=== PATIENT | female | born 1950 | race Caucasian/White ===

== ENCOUNTER 2017-07-16 11:32 | Inpatient (IN) | payer MEDICARE, MEDICAID ==
[2017-07-16 11:40] VITALS: BMI 32.8
[2017-07-16] MEDS ORDERED: Oxycodone/Acetaminophen 5/325 mg Tab PO STA (12:19)
--- NOTE | 2017-07-16 12:24 | ED PDOC ---
Arrival/HPI - General Chief Complaint: Trauma Time Seen by Provider: 07/16/17 12:08 Historian: Patient, Other (pt's son) EM Caveat: Language Barrier - History of Present Illness Narrative History of Present Illness (Text): 07/16/17 12:21 pt accidentally fell off the chair today, just prior to ED arrival; pt states she was trying to sit down and the chair slipped from underneath her, pt fell and struck the back of her head on the wall and her lower back on the ground causing her severe pain; pt states + mild headache, + lower back pain, moving around causes severe pain; pt states no LOC pre/post fall; no fever/chills/ sweats, no cp/sob/palpitations, no abd pain, no n/v, no numbness/tingling, no urinary/bowel changes, no vaginal/rectal numbness/tingling, no incontience, no gross bleeding, no other complaints; pt is here for further eval. 07/16/17 12:32 Pt is right hand dominate pt lives with her son Time/Duration: Prior to Arrival Symptom Onset: Sudden Symptom Course: Other (constant) Quality: Aching, Tightness Severity Level: 7 Activities at Onset: Rest Context: Sitting Past Medical History - Provider Review Nursing Documentation Reviewed: Yes - Travel History Have you recently traveled outside [place] w/in the past 3 mons?: No - Past History Past History: Non-Contributing (+ DM, HTN, elevated chol) - Infectious Disease Hx of Infectious Diseases: None - Tetanus Immunization Tetanus Immunization: Unknown - Cardiac Hx Hyperlipemia: Yes Hx Hypertension: Yes - Neurological Hx Neurological Disorder: No - Endocrine/Metabolic Hx Diabetes Mellitus Type 2: Yes - Hematological/Oncological Hx Blood Disorders: No - Gastrointestinal Hx Gastrointestinal Disorders: No - Genitourinary/Gynecological Hx Genitourinary Disorders: No - Psychiatric Hx Depression: No Hx Emotional Abuse: No Hx Physical Abuse: No Hx Substance Use: No - Surgical History Hx Cholecystectomy: Yes - Anesthesia Hx Anesthesia: Yes Hx Anesthesia Reactions: No Hx Malignant Hyperthermia: No - Suicidal Assessment Suicidal Thoughts: No Feels Threatened In Home Enviroment: No Family/Social History - Physician Review Nursing Documentation Reviewed: Yes Family/Social History: No Known Family HX Narrative Family History (Free Text): 07/16/17 12:27 pt lives with son Smoking Status: Never Smoked Hx Alcohol Use: No Hx Substance Use: No Allergies/Home Meds Allergies/Adverse Reactions: Allergies No Known Allergies Allergy (Verified 04/18/16 17:40) Home Medications: Home Meds Medication Instructions Recorded Confirmed Hydrochlorothiazide/Losartan 1 tab PO DAILY 07/17/13 04/18/16 [Losartan 100MG/HCTZ 25MG] Omeprazole 20 mg PO BID 07/17/13 04/18/16 Pravastatin Sodium 20 mg PO HS 07/17/13 04/18/16 Glimepiride [Amaryl] 07/16/17 amLODIPine [Norvasc] 5 mg PO 07/16/17 metFORMIN [glucOPHAGE] 500 mg PO 07/16/17 Review of Systems - Review of Systems Constitutional: Normal Eyes: Normal ENT: Normal Respiratory: Normal Cardiovascular: Normal Gastrointestinal: Normal Musculoskeletal: Back Pain Skin: Normal Neurological: Headache Endocrine: Normal Hemo/Lymphatic: Normal Psychiatric: Normal Physical Exam - Physical Exam Narrative Physical Exam (Text): 07/16/17 12:28 well appearing patient; resting in bed, alert/awake, GCS = 15, oriented x 3 Vital Signs Reviewed: Yes (elevated DBP) Vital Signs Temp Pulse Resp BP Pulse Ox 07/16/17 15:22 97.9 F 72 18 116/64 96 07/16/17 13:22 79 18 135/89 96 07/16/17 11:44 97.9 F 89 18 137/91 H 95 Temperature: Afebrile Pulse: Regular Respiratory Rate: Normal Appearance: Positive for: Well-Appearing, Uncomfortable (in some distress due to pain, NAD, cooperative) Pain Distress: Mild Mental Status: Positive for: Alert and Oriented X 3 - Systems Exam Head: Present: Normocephalic, Other (+ posterior scalp mild swelling, + tenderness over the swelling site; no flucutance noted) Pupils: Present: PERRL Extroacular Muscles: Present: EOMI Conjunctiva: Present: Normal Ears: Present: Normal Pharnyx: Present: Normal Nose (Internal): Present: Normal Inspection Neck: Present: Normal Range of Motion Respiratory/Chest: Present: Clear to Auscultation, Good Air Exchange Cardiovascular: Present: Regular Rate and Rhythm Abdomen: Present: Normal Bowel Sounds, Other (obese female, no focal tenderness , no eckert's sign, no mcburney's point tenderness, no masses/rebound/guarding/ rigidity). No: Tenderness, Distention, Peritoneal Signs Back: Present: Other (lower lumbar tenderness noted, upper > lower, no step off , no crepitus noted, no ecchymosis noted) Upper Extremity: Present: Normal Inspection, Normal ROM, Capillary Refill < 2s Lower Extremity: Present: Normal Inspection, Capillary Refill < 2 s, Other ( decr ROM to b/l lower ext due to low back pain, neurovasc intact b/l, strength 5 /5 grossly intact in all limbs) Neurological: Present: GCS=15, CN II-XII Intact, Speech Normal Skin: Present: Warm, Normal Color Psychiatric: Present: Alert, Oriented x 3, Normal Insight, Normal Concentration Medical Decision Making ED Course and Treatment: 07/16/17 12:31 pt + accidental fall from chair, NO LOC, + headache, + low back pain, + difficulty with ambulation A/P: fall, headache and back pain - xray - ct - observe - supportive care 07/16/2017 12:[address] HISTORY: fell off [place], posterior scal swelling, no loc COMPARISON: None available. TECHNIQUE: Axial computed tomography images were obtained through the head/ brain without intravenous contrast. Radiation dose: Total exam ZQQ=541 mGy-cm This CT exam was performed using one or more of the following dose reduction techniques: Automated exposure control, adjustment of the mA and/or kV according to patient size, and/or use of iterative reconstruction technique. FINDINGS: HEMORRHAGE: No intracranial hemorrhage. BRAIN: No mass effect or edema. No aatrophy or chrnoic microvasculat ischemic changes. VENTRICLES: Unremarkable. No hydrocephalus. CALVARIUM: Unremarkable. PARANASAL SINUSES: Unremarkable as visualized. No inflammatory changes. MASTOID AIR CELLS: Unmarkable as visualized. No inflammatory changes. OTHER FINDINGS: None. IMPRESSION: No acut findings. Dictator: Garrick Rodrigues MD 07/16/2017 13:26 Lumbar Spinal X-Ray HISTORY: Fall, lower back pain. COMPARISON: No prior. FINDINGS: BONES: There is severe dextroscoliosis in the lumbar spine. There is normal alignment of the lumbar vertebral bodies. There is diffuse bone demineralization. There is anterior cotrical step-off with mild loss of vertebral height at L1. DISC SPACES: There is mild multilevel degenerative disc disease with anterior osteophytes, mild reudced disc heights and multilevel facet arthropathy, worse at L4-5. OTHER FINDINGS: There are atherosclerotic calcifications in the abdominal aorta. IMPRESSION: Suspect acute compression fracture in the L1 vertebral body. No retropulsion. Dictator: Karen Coulter MD 07/16/17 14:05 pt continue to have back pain will attempt to ambulate 07/16/17 14:37 pt failed ambulation, requiring 1 individual constantly next to her to keep her standing pt with persistent back pain paged documentation supervisor hospitalists, made aware, agrees with admission pt/family are made aware of pt's medical results agrees with admission/observation Reassessment Condition: Improving,but remains with symptoms - Lab Interpretations I have reviewed the lab results: Yes Interpretation: No clinic. lab abnormalty - RAD Interpretation Narrative RAD Interpretations (Text): 07/16/17 13:58 FINDINGS: BONES: There is severe dextroscoliosis in the lumbar spine. There is normal alignment of the lumbar vertebral bodies. There is diffuse bone demineralization. There is anterior cortical step-off with mild loss of vertebral height at L1. DISC SPACES: There is mild multilevel degenerative disc disease with anterior osteophytes, mild reduced disc heights and multilevel facet arthropathy, worse at L4-5. OTHER FINDINGS: There are atherosclerotic calcifications in the abdominal aorta IMPRESSION: Suspect acute compression fracture in the L1 vertebral body. No retropulsion. Severe dextroscoliosis in the lumbar spine and mild multilevel degenerative disc disease, worse at L4-5. 07/16/17 13:59 FINDINGS: HEMORRHAGE: No intracranial hemorrhage. BRAIN: No mass effect or edema. No atrophy or chronic microvascular ischemic changes. VENTRICLES: Unremarkable. No hydrocephalus. CALVARIUM: Unremarkable. PARANASAL SINUSES: Unremarkable as visualized. No significant inflammatory changes. MASTOID AIR CELLS: Unremarkable as visualized. No inflammatory changes. OTHER FINDINGS: None. IMPRESSION: No acute findings Radiology Orders: 07/16/17 12:16 HEAD W/O CONTRAST [CT] Stat 07/16/17 12:19 LS SPINE AP/LAT [RAD] Stat Communications Electrician Supervisor: Radiologist - Medication Orders Current Medication Orders: Docusate Sodium (Colace) 100 mg PO DAILY HOLDEN Heparin Sodium (Porcine) (Heparin) 5,000 units SC Q8 HOLDEN PRN Reason: Protocol Naproxen (Anaprox Ds) 550 mg PO BID HOLDEN Non-Formulary Medication (Hydrochlorothiazide/Losartan [Losartan 100mg/Hctz 25mg ]) 1 tab PO DAILY HOLDEN Non-Formulary Medication (Pravastatin Sodium [Pravastatin Sodium]) 20 mg PO HS HOLDEN Oxycodone HCl (Oxycodone Immediate Release Tab) 5 mg PO Q8 HOLDEN Discontinued Medications Diazepam (Valium) 2 mg PO ONCE ONE PRN Reason: Protocol Stop: 07/16/17 12:21 Last Admin: 07/16/17 13:34 Dose: 2 mg Hydromorphone HCl (Dilaudid) 0.5 mg IVP STAT STA Stop: 07/16/17 14:31 Last Admin: 07/16/17 15:01 Dose: 0.5 mg MAR Pain Assessment Document 07/16/17 15:01 OCS (Rec: 07/16/17 15:01 [id number]) Pain Reassessment Is this a pain reassessment? Yes Sleep Is patient sleeping during reassessment? No Presence of Pain Presence of Pain Yes Pain Scale Used Pain Scale Used Numeric Location Upper or Lower Lower Pain Location Body Site Back Description Description Constant Intensity of Pain at present 10 Pain Behavior Guarding Aggravating Factors ADL's IVP Administration Document 07/16/17 15:01 OCS (Rec: 07/16/17 15:01 [id number]) Charges for Administration # of IVP Administrations 1 Ibuprofen (Motrin Tab) 400 mg PO STAT STA Stop: 07/16/17 12:21 Last Admin: 07/16/17 13:34 Dose: 400 mg MAR Pain/Vitals Document 07/16/17 13:34 OCS (Rec: 07/16/17 13:35 [id number]) Pain Reassessment Is This A Pain ReAssessment? Yes Sleep Is patient sleeping during reassessment? No Presence of Pain Presence of Pain Yes Location Pain Location Body Coding Machine Operator Oxycodone/Acetaminophen (Percocet 5/325 Mg Tab) 1 tab PO STAT STA Stop: 07/16/17 12:20 Last Admin: 07/16/17 13:35 Dose: 1 tab MAR Pain Assessment Document 07/16/17 13:35 OCS (Rec: 07/16/17 13:35 [id number]) Pain Reassessment Is this a pain reassessment? Yes Sleep Is patient sleeping during reassessment? No Presence of Pain Presence of Pain Yes Location Pain Location Body Coding Machine Operator Disposition/Present on Arrival - Present on Arrival Any Indicators Present on Arrival: Yes History of DVT/PE: No History of Uncontrolled Diabetes: No Urinary Catheter: No History of Decub. Ulcer: No History Surgical Site Infection Following: None - Disposition Have Diagnosis and Disposition been Completed?: Yes Diagnosis: Fall, Closed compression fracture of L1 lumbar vertebral body, Ambulatory dysfunction Disposition: HOSPITALIZED Disposition Time: 14:15 Patient Plan: Admission, Observation Patient Problems: Current Active Problems Problem Status Onset Fall Acute Closed compression fracture of L1 lumbar vertebral body Acute Ambulatory dysfunction Acute Condition: STABLE
--- NOTE | 2017-07-16 12:56 | CT ---
PROCEDURE: CT HEAD WITHOUT CONTRAST. HISTORY: fell off chair, posterior scalp swelling, no loc COMPARISON: None available. TECHNIQUE: Axial computed tomography images were obtained through the head/brain without intravenous contrast. Radiation dose: Total exam DLP = 681 mGy-cm. This CT exam was performed using one or more of the following dose reduction techniques: Automated exposure control, adjustment of the mA and/or kV according to patient size, and/or use of iterative reconstruction technique. FINDINGS: HEMORRHAGE: No intracranial hemorrhage. BRAIN: No mass effect or edema. No atrophy or chronic microvascular ischemic changes. VENTRICLES: Unremarkable. No hydrocephalus. CALVARIUM: Unremarkable. PARANASAL SINUSES: Unremarkable as visualized. No significant inflammatory changes. MASTOID AIR CELLS: Unremarkable as visualized. No inflammatory changes. OTHER FINDINGS: None. IMPRESSION: No acute findings
--- NOTE | 2017-07-16 13:28 | RAD ---
PROCEDURE: Radiographs of the Lumbar Spine. HISTORY: Fall, lower back pain COMPARISON: No prior. FINDINGS: BONES: There is severe dextroscoliosis in the lumbar spine. There is normal alignment of the lumbar vertebral bodies. There is diffuse bone demineralization. There is anterior cortical step-off with mild loss of vertebral height at L1. DISC SPACES: There is mild multilevel degenerative disc disease with anterior osteophytes, mild reduced disc heights and multilevel facet arthropathy, worse at L4-5. OTHER FINDINGS: There are atherosclerotic calcifications in the abdominal aorta IMPRESSION: Suspect acute compression fracture in the L1 vertebral body. No retropulsion. Severe dextroscoliosis in the lumbar spine and mild multilevel degenerative disc disease, worse at L4-5.
[2017-07-16] MEDS ORDERED: HYDROmorphone 0.5 mg/0.5 ml ISec IVP STA (14:30)
[2017-07-16 15:08] LABS: BASO # 0.04 K/mm3 (0.0-2.0); BASO % 0.5 % (0.0-3.0); EOS # 0.1 (0.0-0.7); EOS % 1.6 % (1.5-5.0); GRAN # 6.02 (1.4-6.5); GRAN % 72.1 % (50.0-68.0); HEMATOCRIT 39.8 % (36.0-48.0); LYMPH # 1.6 (1.2-3.4); LYMPH % 19.1 % (22.0-35.0); MEAN CELL VOLUME 89.2 fl (80.0-105.0); MEAN CORPUSCULAR HEMOGLOBIN 30.5 pg (25.0-35.0); MEAN CORPUSCULAR HGB CONC 34.2 g/dl (31.0-37.0); MEAN PLATELET VOLUME 10.2 fl (7.0-11.0); MONO # 0.6 (0.1-0.6); MONO % 6.7 % (1.0-6.0); RED CELL DISTRIBUTION WIDTH 12.6 % (11.5-14.5); WHITE BLOOD COUNT 8.3 10^3/ul (4.5-11.0)
[2017-07-16 15:16] LABS: BLOOD UREA NITROGEN 25 mg/dL (7-21); CALCIUM 9.6 mg/dL (8.4-10.5); CARBON DIOXIDE 27 mmol/L (21-33); CHLORIDE 102 mmol/L (98-107); GFR AFRICAN-AMERICAN > 60; GLUCOSE,RANDOM 127 mg/dL (70-110); POTASSIUM 3.9 mmol/L (3.6-5.0); SODIUM 138 mmol/L (132-148)
[2017-07-16] MEDS ORDERED: [UNRECOGNIZED DRUG - OTHER] PO SCH (15:30)
[2017-07-16] MEDS ORDERED: LOSARTAN PO SCH (15:30)
[2017-07-16] MEDS ORDERED: HYDROCHLOROTHIAZIDE PO SCH (15:30)
--- NOTE | 2017-07-16 15:32 | CP.PCM.HP ---
<Lamont Huitron - Last Filed: 07/16/17 15:38> History of Present Illness - History of Present Illness History of Present Illness: This is a 67 year with a past medical history of hypertension, hyperlipidemia, and diabetes mellitus who comes in after falling on the floor. The patient attempted to sit in a chair and when she set down the chair slipped from under her and she feel backwards hitting her head. She denies any loss of consciousness as a result. Afterwards she was brought into the emergency department as a result. The patient denies any lightheadedness, dizziness, syncopal episodes, in association with the slip. She also denies any abdominal pain, diarrhea, vision changes, sicks contacts, or any other complaints. PMD: Dr. Verma Past medical history: HTN, HLD, and D.M. Medications: See MAR Past surgical history: Denies Allergies: NKDA Family history: Denies any Social history: Denies alcohol or tobacco use. Denies illicit drug use. Present on Admission - Present on Admission Any Indicators Present on Admission: No Review of Systems - Constitutional Constitutional: As Per HPI - EENT Eyes: As Per HPI Ears: As Per HPI Nose/Mouth/Throat: As Per HPI - Cardiovascular Cardiovascular: As Per HPI - Respiratory Respiratory: As Per HPI - Gastrointestinal Gastrointestinal: As Per HPI - Genitourinary Genitourinary: As Per HPI - Musculoskeletal Musculoskeletal: As Per HPI - Integumentary Integumentary: As Per HPI - Neurological Neurological: As Per HPI - Psychiatric Psychiatric: As Per HPI - Endocrine Endocrine: As Per HPI - Hematologic/Lymphatic Hematologic: As Per HPI Past Patient History - Infectious Disease Hx of Infectious Diseases: None - Tetanus Immunizations Tetanus Immunization: Unknown - Past Social History Smoking Status: Never Smoked - CARDIAC Hx Hypertension: Yes - NEUROLOGICAL Hx Neurological Disorder: No - ENDOCRINE/METABOLIC Hx Diabetes Mellitus Type 2: Yes - HEMATOLOGICAL/ONCOLOGICAL Hx Blood Disorders: No - GASTROINTESTINAL Hx Gastrointestinal Disorders: No - GENITOURINARY/GYNECOLOGICAL Hx Genitourinary Disorders: No - PSYCHIATRIC Hx Depression: No Hx Emotional Abuse: No Hx Physical Abuse: No Hx Substance Use: No - SURGICAL HISTORY Hx Cholecystectomy: Yes - ANESTHESIA Hx Anesthesia: Yes Hx Anesthesia Reactions: No Hx Malignant Hyperthermia: No Meds Allergies/Adverse Reactions: Allergies Allergy/AdvReac Type Severity Reaction Status Date / Time No Known Allergies Allergy Verified 07/16/17 16:28 Physical Exam - Head Exam Head Exam: ATRAUMATIC, NORMAL INSPECTION, NORMOCEPHALIC - Eye Exam Eye Exam: EOMI, Normal appearance, PERRL Pupil Exam: NORMAL ACCOMODATION, PERRL. absent: Irregular, Unequal - ENT Exam ENT Exam: Mucous Membranes Moist, Normal Exam, Normal Oropharynx - Neck Exam Neck exam: Positive for: Normal Inspection. Negative for: Lymphadenopathy, Thyromegaly - Respiratory Exam Respiratory Exam: Clear to Auscultation Bilateral, NORMAL BREATHING PATTERN. absent: Chest Wall Tenderness, Prolonged Expiratory Phase, Respiratory Distress - Cardiovascular Exam Cardiovascular Exam: REGULAR RHYTHM, +S1, +S2 - GI/Abdominal Exam GI & Abdominal Exam: Normal Bowel Sounds, Soft. absent: Organomegaly, Tenderness - Extremities Exam Extremities exam: Positive for: full ROM, normal inspection. Negative for: pedal edema, tenderness Additional comments: Pain in the lower back when flexion at the hip bilaterally. - Back Exam Back exam: NORMAL INSPECTION. absent: CVA tenderness (L), CVA tenderness (R), paraspinal tenderness - Neurological Exam Neurological exam: Alert, CN II-XII Intact, Oriented x3 - Psychiatric Exam Psychiatric exam: Normal Affect, Normal Mood - Skin Skin Exam: Dry, Intact, Normal Color, Warm Results - Vital Signs Recent Vital Signs: Last Vital Signs Temp 97.9 F 07/16/17 15:22 Pulse 72 07/16/17 15:22 Resp 18 07/16/17 15:22 BP 116/64 07/16/17 15:22 Pulse Ox 96 07/16/17 15:22 - Labs Result Diagrams: 07/16/17 14:55 07/16/17 14:55 Labs: Laboratory Results - last 24 hr 07/16/17 07/16/17 14:55 14:55 WBC 8.3 RBC 4.46 Hgb 13.6 Hct 39.8 MCV 89.2 MCH 30.5 MCHC 34.2 RDW 12.6 Plt Count 301 MPV 10.2 Gran % 72.1 H Lymph % (Auto) 19.1 L Blanco % (Auto) 6.7 H Eos % (Auto) 1.6 Baso % (Auto) 0.5 Gran # 6.02 Lymph # 1.6 Blanco # 0.6 Eos # 0.1 Baso # 0.04 Sodium 138 Potassium 3.9 Chloride 102 Carbon Dioxide 27 Anion Gap 13 BUN 25 H Creatinine 0.9 Est GFR ( Amer) > 60 Est GFR (Non-Af Amer) > 60 Random Glucose 127 H Calcium 9.6 Assessment & Plan - Assessment and Plan (Free Text) Assessment: This is a 67 year old female with a past medical history of HTN, HLD, and D.M. who is being admitted for an Acute L1 compression fracture 2/2 to mechanical fall. Plan: 1. Acute compression fracture of L1 (2/2 to Mechanical fall) -Lumbar xray showed compression fracture at L1, Dextroscoliosis and Degenerative Disc disease at L4-L5 -Head CT negative for any acute process. -Gal Jackson consulted. Will f/u with rec's. -Pain management: Naproxen Q12 and Oxycodone 5mg Q8 -Colace 2.Hypertension -restart home meds. -Continue to monitor. 3. D.M. -Home meds held. -ISS -Accuchecks ACHS. -Diabetic diet 4.HLD -restart home meds. DVT ppx -Heparin <Matt Llanos - Last Filed: 07/16/17 17:40> Results - Vital Signs Recent Vital Signs: Last Vital Signs Temp 97.9 F 07/16/17 15:22 Pulse 69 07/16/17 17:28 Resp 18 07/16/17 17:28 BP 114/63 07/16/17 17:28 Pulse Ox 96 07/16/17 17:28 - Labs Result Diagrams: 07/16/17 14:55 07/16/17 14:55 Labs: Laboratory Results - last 24 hr 07/16/17 07/16/17 14:55 14:55 WBC 8.3 RBC 4.46 Hgb 13.6 Hct 39.8 MCV 89.2 MCH 30.5 MCHC 34.2 RDW 12.6 Plt Count 301 MPV 10.2 Gran % 72.1 H Lymph % (Auto) 19.1 L Blanco % (Auto) 6.7 H Eos % (Auto) 1.6 Baso % (Auto) 0.5 Gran # 6.02 Lymph # 1.6 Blanco # 0.6 Eos # 0.1 Baso # 0.04 Sodium 138 Potassium 3.9 Chloride 102 Carbon Dioxide 27 Anion Gap 13 BUN 25 H Creatinine 0.9 Est GFR ( Amer) > 60 Est GFR (Non-Af Amer) > 60 Random Glucose 127 H Calcium 9.6 Attending/Attestation - Attestation I have personally seen and examined this patient.: Yes I have fully participated in the care of the patient.: Yes I have reviewed all pertinent clinical information: Yes Notes (Text): 67 year with a past medical history of hypertension, hyperlipidemia, and diabetes mellitus who comes in after falling on the floor. now with acute L1 fracture compression admitted for pain control possible eval for kyphoplasty
[2017-07-16] MEDS ORDERED: Pneumococcal 23-Valent Vaccine IM ONE (17:58)
[2017-07-16] MEDS ORDERED: Influenza Vaccine 60 mcg/0.5 mL SYR (4YR UP) IM ONE (17:58)
[2017-07-16] MEDS ORDERED: Naproxen 550 mg Tab PO SCH (18:00)
[2017-07-16] MEDS ORDERED: Alum-Mag Hydrox-Simethicone Susp (30 mL) PO ONE (20:24)
[2017-07-16] MEDS ORDERED: oxyCODONE 5 mg Immediate Release Tab PO SCH (22:00)
[2017-07-16] MEDS: Insulin Lispro (humaLOG) LOW Coverage SC SCH (22:10)
--- NOTE | 2017-07-17 01:44 | PN ---
DATE: 07/16/2017 TIME: 08:26 p.m. SUBJECTIVE: This is a 67-year-old female who fell today while trying to sit in a chair. She has had severe lumbar pain since that time. This is distinctly different from her baseline. She is fairly functional. She has a past medical history of hypertension, dyslipidemia, and diabetes. LABORATORY DATA: X-rays revealed a mild L1 compression fracture, which is thought to be acute. I have ordered an MRI of the lumbar spine to evaluate the L1 vertebral body for edema and the posterior elements. ASSESSMENT AND PLAN: I had discussion with the patient's family. She does not speak Finnish. They were interested in considering conservative management. I told them that is obviously an option depending on the severity of her pain and her mobility. We also discussed the kyphoplasty as an option. I have ordered the lumbar MRI and we will reassess her pain and how the family feels about L1 kyphoplasty after the weekend. Gal Jackson MD MTDD
[2017-07-17] MEDS: Insulin Lispro (humaLOG) LOW Coverage SC SCH ×4 (07:25→22:22)
[2017-07-17 07:32] LABS: BASO # 0.04 K/mm3 (0.0-2.0); BASO % 0.6 % (0.0-3.0); EOS # 0.1 (0.0-0.7); EOS % 1.6 % (1.5-5.0); GRAN # 4.36 (1.4-6.5); GRAN % 63.4 % (50.0-68.0); HEMATOCRIT 37.1 % (36.0-48.0); LYMPH # 1.8 (1.2-3.4); LYMPH % 26.7 % (22.0-35.0); MEAN CELL VOLUME 90.3 fl (80.0-105.0); MEAN CORPUSCULAR HEMOGLOBIN 29.9 pg (25.0-35.0); MEAN CORPUSCULAR HGB CONC 33.2 g/dl (31.0-37.0); MEAN PLATELET VOLUME 10.4 fl (7.0-11.0); MONO # 0.5 (0.1-0.6); MONO % 7.7 % (1.0-6.0); RED CELL DISTRIBUTION WIDTH 12.8 % (11.5-14.5); WHITE BLOOD COUNT 6.9 10^3/ul (4.5-11.0)
[2017-07-17 07:42] LABS: ALB/GLOB RATIO 1.2 (1.1-1.8); ALKALINE PHOSPHATASE 56 U/L (38-126); ALT/SGPT 27 U/L (7-56); AST/SGOT 19 U/L (14-36); BILIRUBIN,TOTAL 0.7 mg/dL (0.2-1.3); BLOOD UREA NITROGEN 29 mg/dL (7-21); CALCIUM 9.6 mg/dL (8.4-10.5); CARBON DIOXIDE 32 mmol/L (21-33); CHLORIDE 100 mmol/L (98-107); GFR AFRICAN-AMERICAN > 60; GLUCOSE,RANDOM 141 mg/dL (70-110); POTASSIUM 3.9 mmol/L (3.6-5.0); SODIUM 138 mmol/L (132-148); TOTAL PROTEIN 6.9 g/dL (5.8-8.3)
[2017-07-17] MEDS ORDERED: Pantoprazole 40 mg EC Tab PO STA (12:11)
[2017-07-17] MEDS ORDERED: POLYETHYLENE GLYCOL 3350 17 GM/Dose PACKET PO ONE (14:42)
--- NOTE | 2017-07-17 15:53 | MRI ---
EXAM: MR Lumbar Spine Without Intravenous Contrast CLINICAL HISTORY: 67 years old, female; Injury or trauma; Injury Patient fell. Lower back pain; Initial encounter; Fracture, traumatic injury; Not specified; First lumbar vertebra; Injury date: 07/16/17; Injury details: ? Compression fracture; Patient HX: ? Compression fracture. Patient fell; Additional info: Eval l1 comp FX for kyphoplasty TECHNIQUE: Magnetic resonance images of the lumbar spine without intravenous contrast in multiple planes. COMPARISON: DX - LS SPINE AP/LAT 2017-07-16 13:03 FINDINGS: Vertebrae: There is an acute compression fracture involving the superior endplate of the L1 vertebra. There is no retropulsion. Interspaces: There are multilevel degenerative changes including disc space narrowing, disc desiccation, disc bulging, and facet arthropathy, all of which contribute to mild/moderate spinal canal stenosis and multilevel neural foraminal narrowing. Spinal cord: Unremarkable. Normal signal. Soft tissues: Unremarkable. There is grade 1 anterior spondylolisthesis at L4/5. IMPRESSION: 1. There is an acute compression fracture involving the superior endplate of the L1 vertebra. There is no retropulsion. 2. There are multilevel degenerative changes including disc space narrowing, disc desiccation, disc bulging, and facet arthropathy, all of which contribute to mild/moderate spinal canal stenosis and multilevel neural foraminal narrowing.
[2017-07-17 16:48] VITALS: RESP 20
--- NOTE | 2017-07-17 19:00 | CP.PCM.PN ---
<Stephan Castorena - Last Filed: 07/17/17 18:50> Subjective - Date & Time of Evaluation Date of Evaluation: 07/17/17 Time of Evaluation: 18:50 - Subjective Subjective: Medicine progress note for Dr. Jarod Martin DO PGY - 1, Pager [phone] Pt s/e bedside. Pt is does not complain of any pain at this time, but does state that she gets pain from time to time. Denies any confusion or dizziness. No further complaints at this time. Objective - Vital Signs/Intake and Output Vital Signs (last 24 hours): Temp Pulse Resp BP Pulse Ox 98.5 F 79 20 106/69 94 L 07/17/17 16:48 07/17/17 16:48 07/17/17 16:48 07/17/17 16:48 07/17/17 16:48 Intake and Output: 07/17/17 07/17/17 06:59 18:59 Intake Total 120 480 Balance 120 480 - Medications Medications: Current Medications Atorvastatin Calcium (Lipitor) 10 mg PO HS [facility] Last Admin: 07/16/17 22:09 Dose: 10 mg Docusate Sodium (Colace) 100 mg PO BID [facility] Last Admin: 07/17/17 18:13 Dose: 100 mg Heparin Sodium (Porcine) (Heparin) 5,000 units SC Q8 [facility] PRN Reason: Protocol Last Admin: 07/16/17 22:09 Dose: 5,000 units Hydrochlorothiazide (Hydrodiuril) 25 mg PO DAILY [facility] Last Admin: 07/17/17 10:23 Dose: 25 mg Insulin Human Lispro (Humalog Low) 0 units SC ACHS [facility] PRN Reason: Protocol Last Admin: 07/17/17 16:12 Dose: Not Given Losartan Potassium (Cozaar) 100 mg PO DAILY [facility] Last Admin: 07/17/17 10:23 Dose: 100 mg Naproxen (Anaprox Ds) 550 mg PO BID [facility] Last Admin: 07/16/17 18:28 Dose: 550 mg Ondansetron HCl (Zofran Inj) 4 mg IVP Q4H PRN PRN Reason: Nausea/Vomiting Last Admin: 07/17/17 01:51 Dose: 4 mg Oxycodone HCl (Oxycodone Immediate Release Tab) 5 mg PO Q8 PRN PRN Reason: Pain, moderate (4-7) Pantoprazole Sodium (Protonix Ec Tab) 40 mg PO 0600 [facility] - Labs Labs: 07/17/17 06:00 07/17/17 06:00 - Constitutional Appears: Well, Non-toxic - Head Exam Head Exam: ATRAUMATIC, NORMAL INSPECTION, NORMOCEPHALIC - Eye Exam Eye Exam: EOMI, Normal appearance, PERRL Pupil Exam: NORMAL ACCOMODATION, PERRL - ENT Exam ENT Exam: Mucous Membranes Moist, Normal Exam - Neck Exam Neck Exam: Full ROM - Respiratory Exam Respiratory Exam: Clear to Ausculation Bilateral, NORMAL BREATHING PATTERN. absent: Decreased Breath Sounds - Cardiovascular Exam Cardiovascular Exam: REGULAR RHYTHM, RRR, +S1, +S2. absent: Bradycardia, Tachycardia, Gallop, JVD, Rubs - Rectal Exam Rectal Exam: Deferred - Extremities Exam Extremities Exam: Full ROM, Normal Capillary Refill, Normal Inspection - Back Exam Back Exam: NORMAL INSPECTION. absent: CVA tenderness (L), CVA tenderness (R) Additional comments: Pain with hip flexion - Neurological Exam Neurological Exam: Alert, Awake, CN II-XII Intact, Normal Gait, Oriented x3 Neuro motor strength exam: Left Upper Extremity: 5, Right Upper Extremity: 5, Left Lower Extremity: 5, Right Lower Extremity: 5 Assessment and Plan - Assessment and Plan (Free Text) Assessment: A/P: 67 year old luxembourgish speaking female with a past medical history of HTN, HLD, and D.M. who is being admitted for an Acute L1 compression fracture 2/2 to mechanical fall. Acute compression fracture of L1 2/2 to Mechanical fall - Lumbar xray showed compression fracture at L1, Dextroscoliosis and Degenerative Disc disease at L4-L5 - Head CT negative for any acute process - Lumbar MRI: Acute compression fracture in superior endplate of L1 vertebra; multilevel degenerative changes including disc space narrowing, contribute to mild moderate spinal canal stenosis - Gal Jackson consulted: discussed kyphoplasty with family as well as conservative management with family this weekend - Pain management: Naproxen Q12 and Oxycodone 5mg Q8 - Colace Hypertension - Restart home meds: HCTZ, losartan, - Continue to monitor. D.M. - Home meds held. - ISS - Accuchecks ACHS. - Diabetic diet HLD - Restart home meds: lipitor GI/DVT ppx - Heparin - Protonix <Rupesh Olivera - Last Filed: 07/17/17 19:46> Objective - Vital Signs/Intake and Output Vital Signs (last 24 hours): Temp Pulse Resp BP Pulse Ox 98.5 F 79 20 106/69 94 L 07/17/17 16:48 07/17/17 16:48 07/17/17 16:48 07/17/17 16:48 07/17/17 16:48 Intake and Output: 07/17/17 07/18/17 18:59 06:59 Intake Total 480 Balance 480 - Medications Medications: Current Medications Atorvastatin Calcium (Lipitor) 10 mg PO HS [facility] Last Admin: 07/16/17 22:09 Dose: 10 mg Docusate Sodium (Colace) 100 mg PO BID [facility] Last Admin: 07/17/17 18:13 Dose: 100 mg Heparin Sodium (Porcine) (Heparin) 5,000 units SC Q8 [facility] PRN Reason: Protocol Last Admin: 07/16/17 22:09 Dose: 5,000 units Hydrochlorothiazide (Hydrodiuril) 25 mg PO DAILY [facility] Last Admin: 07/17/17 10:23 Dose: 25 mg Insulin Human Lispro (Humalog Low) 0 units SC ACHS [facility] PRN Reason: Protocol Last Admin: 07/17/17 16:12 Dose: Not Given Losartan Potassium (Cozaar) 100 mg PO DAILY [facility] Last Admin: 07/17/17 10:23 Dose: 100 mg Naproxen (Anaprox Ds) 550 mg PO BID [facility] Last Admin: 07/16/17 18:28 Dose: 550 mg Ondansetron HCl (Zofran Inj) 4 mg IVP Q4H PRN PRN Reason: Nausea/Vomiting Last Admin: 07/17/17 01:51 Dose: 4 mg Oxycodone HCl (Oxycodone Immediate Release Tab) 5 mg PO Q8 PRN PRN Reason: Pain, moderate (4-7) Pantoprazole Sodium (Protonix Ec Tab) 40 mg PO 0600 [facility] - Labs Labs: 07/17/17 06:00 07/17/17 06:00 Attending/Attestation - Attestation I have personally seen and examined this patient.: Yes I have fully participated in the care of the patient.: Yes I have reviewed all pertinent clinical information, including history, physical exam and plan: Yes Notes (Text): 07/17/17 19:43 Patient seen and examined independently at bedside. labs, vitals, note reviewed. MRI reviewed along with recommendations from IR. Patient reports some improvement in her back pain, 5-01/23. No new complaints/symptoms provided. Awaiting recommendations from IR. Episode of coffee ground reported by family, H /H remains stable. PPI started and GI consulted. Agree with the remainder of the plan as outlined by the resident.
[2017-07-17] MEDS: oxyCODONE 5 mg Immediate Release Tab PO PRN (19:48)
[2017-07-18] MEDS: Pantoprazole 40 mg EC Tab PO SCH (06:42)
[2017-07-18 06:52] LABS: ALB/GLOB RATIO 1.1 (1.1-1.8); ALKALINE PHOSPHATASE 55 U/L (38-126); ALT/SGPT 21 U/L (7-56); AST/SGOT 30 U/L (14-36); BILIRUBIN,TOTAL 0.8 mg/dL (0.2-1.3); BLOOD UREA NITROGEN 29 mg/dL (7-21); CARBON DIOXIDE 32 mmol/L (21-33); CHLORIDE 97 mmol/L (98-107); GFR AFRICAN-AMERICAN > 60; GLUCOSE,RANDOM 151 mg/dL (70-110); POTASSIUM 4.2 mmol/L (3.6-5.0); SODIUM 138 mmol/L (132-148); TOTAL PROTEIN 8.1 g/dL (5.8-8.3)
[2017-07-18 07:07] LABS: BASO # 0.05 K/mm3 (0.0-2.0); BASO % 0.6 % (0.0-3.0); EOS # 0.2 (0.0-0.7); EOS % 1.9 % (1.5-5.0); GRAN # 5.77 (1.4-6.5); GRAN % 67.9 % (50.0-68.0); HEMATOCRIT 41.2 % (36.0-48.0); LYMPH # 1.9 (1.2-3.4); MEAN CELL VOLUME 90.5 fl (80.0-105.0); MEAN CORPUSCULAR HEMOGLOBIN 30.3 pg (25.0-35.0); MEAN CORPUSCULAR HGB CONC 33.5 g/dl (31.0-37.0); MEAN PLATELET VOLUME 10.9 fl (7.0-11.0); MONO # 0.7 (0.1-0.6); MONO % 7.6 % (1.0-6.0); RED CELL DISTRIBUTION WIDTH 12.9 % (11.5-14.5); WHITE BLOOD COUNT 8.5 10^3/ul (4.5-11.0)
[2017-07-18] MEDS: Insulin Lispro (humaLOG) LOW Coverage SC SCH ×4 (09:28→21:50)
[2017-07-18] MEDS ORDERED: Iohexol 240 (50 ml) ONE (09:31)
[2017-07-18] MEDS ORDERED: Magnesium Hydroxide Susp 30 ml UD PO ONE (10:20)
--- NOTE | 2017-07-18 13:56 | CT ---
PROCEDURE: CT Abdomen and Pelvis without IV contrast. HISTORY: abd distention; hematemesis COMPARISON: Lumbar spine MRI performed 07/17/17 TECHNIQUE: Contiguous axial images of the abdomen and pelvis. Oral contrast was administered. No IV contrast given. Coronal and Sagittal reformats generated and reviewed. Radiation dose: Total exam DLP = 1159.49 mGy-cm. This CT exam was performed using one or more of the following dose reduction techniques: Automated exposure control, adjustment of the mA and/or kV according to patient size, and/or use of iterative reconstruction technique. FINDINGS: There is limited evaluation of the solid organs without the administration of IV contrast. LOWER THORAX: Bibasilar atelectasis. 8 mm focal pleural thickening versus nodule along the medial aspect visualized right pleural fissure. No visualized pleural effusion or pneumothorax. Moderate hiatal hernia. LIVER: 10 mm and 11 mm hypodensities within the left hepatic lobe, indeterminate. GALLBLADDER AND BILE DUCTS: Cholecystectomy. PANCREAS: Unremarkable unenhanced appearance. SPLEEN: 6 mm probable splenule. Unremarkable unenhanced appearance. ADRENALS: Unremarkable unenhanced appearance. KIDNEYS AND URETERS: No hydronephrosis or obstructing renal calculus. BLADDER: The urinary bladder appears unremarkable. REPRODUCTIVE: Uterus is present. APPENDIX: The appendix appears within normal limits of caliber. No secondary signs of acute appendicitis. BOWEL: The stomach is nondistended. The bowel loops appear within normal limits of caliber without evidence of intestinal obstruction. PERITONEUM: No significant free fluid. No definite free air. LYMPH NODES: No bulky lymphadenopathy identified. VASCULATURE: Atherosclerotic calcifications of the aorta. No aortic aneurysm. BONES: Degenerative changes. Scoliosis. L1 compression fracture re-identified. OTHER FINDINGS: 13 mm fat containing umbilical hernia. IMPRESSION: 10 mm and 11 mm hypodensities within the left hepatic lobe, indeterminate. Cholecystectomy. Bibasilar atelectasis. 8 mm focal pleural thickening versus nodule along the medial aspect visualized right pleural fissure. Acute appearing L1 compression fracture re-identified.
[2017-07-18 16:21] VITALS: O2SAT 95
[2017-07-18] MEDS ORDERED: Magnesium Citrate Oral SOL (300 ml) PO ONE (19:09)
[2017-07-18] MEDS: oxyCODONE 5 mg Immediate Release Tab PO PRN (19:26)
--- NOTE | 2017-07-18 19:55 | CP.PCM.PN ---
<Stephan Castorena - Last Filed: 07/18/17 19:49> Subjective - Date & Time of Evaluation Date of Evaluation: 07/18/17 Time of Evaluation: 19:49 - Subjective Subjective: Medicine progress note for Dr. Olivera - Stephan Martin DO PGY - 1, Pager [phone] Pt s/e bedside. Pt does not complain of any pain at this time, but does state that she gets pain from time to time. Pt further is complaining of not having passed a bm since Wednesday. She did complain of a headache with dizziness this am , and tylenol was given. No further complaints at this time. Objective - Vital Signs/Intake and Output Vital Signs (last 24 hours): Temp Pulse Resp BP Pulse Ox 98 F 84 20 120/60 95 07/18/17 16:20 07/18/17 16:20 07/18/17 16:20 07/18/17 16:20 07/18/17 16:20 - Medications Medications: Current Medications Acetaminophen (Tylenol 325mg Tab) 650 mg PO Q6H PRN PRN Reason: Headache Last Admin: 07/18/17 08:15 Dose: 650 mg Atorvastatin Calcium (Lipitor) 10 mg PO HS [facility] Last Admin: 07/17/17 21:31 Dose: 10 mg Docusate Sodium (Colace) 100 mg PO BID [facility] Last Admin: 07/18/17 18:22 Dose: 100 mg Heparin Sodium (Porcine) (Heparin) 5,000 units SC Q8 [facility] PRN Reason: Protocol Last Admin: 07/16/17 22:09 Dose: 5,000 units Hydrochlorothiazide (Hydrodiuril) 25 mg PO DAILY [facility] Last Admin: 07/18/17 09:28 Dose: 25 mg Insulin Human Lispro (Humalog Low) 0 units SC ACHS [facility] PRN Reason: Protocol Last Admin: 07/18/17 17:08 Dose: Not Given Losartan Potassium (Cozaar) 100 mg PO DAILY [facility] Last Admin: 07/18/17 09:28 Dose: 100 mg Naproxen (Anaprox Ds) 550 mg PO BID [facility] Last Admin: 07/16/17 18:28 Dose: 550 mg Ondansetron HCl (Zofran Inj) 4 mg IVP Q4H PRN PRN Reason: Nausea/Vomiting Last Admin: 07/17/17 01:51 Dose: 4 mg Oxycodone HCl (Oxycodone Immediate Release Tab) 5 mg PO Q8 PRN PRN Reason: Pain, moderate (4-7) Last Admin: 07/18/17 19:26 Dose: 5 mg Pantoprazole Sodium (Protonix Ec Tab) 40 mg PO 0600 [facility] Last Admin: 07/18/17 06:42 Dose: 40 mg - Labs Labs: 07/18/17 05:00 07/18/17 05:00 - Additional Findings Additional findings: Phys Exam: VS as below Const'l: a&o x 4, nad Head/Neck: neck supple, no jvd, trachea midline, carotid midline, no cervical /head mass Eyes: radha, nonicteric sclera, eom intact ENT: auditory acuity grossly intact, throat not congested, no nasal deformity Cardio: rrr, no m/r/g, no carotid bruit, nml s1, s2 Pulm: no accessory muscle use, equal nml breath sounds bilaterally, ctab Abd: s/nt/nd, nbs x 4 q, no palpable masses Derm: no rashes, no ulcers, no lesions Extr: no edema, no cyanosis, no calf tenderness, no lesions, no varicosities Neuro: cn II-XII grossly intact, ue and le 5/5 muscle strength bilaterally, no los ue, le bilaterally and core MSK: +pain with flexion Assessment and Plan - Assessment and Plan (Free Text) Assessment: A/P: 67 year old greek speaking female with a past medical history of HTN, HLD, and D.M. who is being admitted for an Acute L1 compression fracture 2/2 to mechanical fall. Acute compression fracture of L1 2/2 to Mechanical fall - Lumbar xray showed compression fracture at L1, Dextroscoliosis and Degenerative Disc disease at L4-L5 - Head CT negative for any acute process - Lumbar MRI: Acute compression fracture in superior endplate of L1 vertebra; multilevel degenerative changes including disc space narrowing, contribute to mild Moderate spinal canal stenosis - Gal Dasilva consulted: discussed kyphoplasty with family as well as conservative management with family this weekend. Will examine pt tomorrow before coming to a decision - Pain management: Naproxen Q12 and Oxycodone 5mg Q8 Coffee Ground Emesis - GI C/s: sri Pang appreciated - CT Abdomen pelvis: no obstruction or stool in the colon. Incidental findings include 10 mm and 11 mm hypodensities within the left hepatic lobe - indeterminate - H/H stable - Protonix 40 mg PO daily Constipation - Colace, Milk of Mg one dose, and Mg Citrate one dose Renal Hypodensities - Liver u/s ordered by Dr. Cheng per nursing - Advised pt to follow up on this outpatient if it is not worked up in the hospital Hypertension - Restart home meds: HCTZ, losartan - Continue to monitor D.M. - Home meds held. - ISS - Accuchecks ACHS. - Diabetic diet HLD - Restart home meds: lipitor GI/DVT ppx - Heparin - Protonix <Rupesh Olivera - Last Filed: 07/18/17 21:01> Objective - Vital Signs/Intake and Output Vital Signs (last 24 hours): Temp Pulse Resp BP Pulse Ox 98 F 84 20 120/60 95 07/18/17 16:20 07/18/17 16:20 07/18/17 16:20 07/18/17 16:20 07/18/17 16:20 - Medications Medications: Current Medications Acetaminophen (Tylenol 325mg Tab) 650 mg PO Q6H PRN PRN Reason: Headache Last Admin: 07/18/17 08:15 Dose: 650 mg Atorvastatin Calcium (Lipitor) 10 mg PO HS [facility] Last Admin: 07/17/17 21:31 Dose: 10 mg Docusate Sodium (Colace) 100 mg PO BID [facility] Last Admin: 07/18/17 18:22 Dose: 100 mg Heparin Sodium (Porcine) (Heparin) 5,000 units SC Q8 [facility] PRN Reason: Protocol Last Admin: 07/16/17 22:09 Dose: 5,000 units Hydrochlorothiazide (Hydrodiuril) 25 mg PO DAILY [facility] Last Admin: 07/18/17 09:28 Dose: 25 mg Insulin Human Lispro (Humalog Low) 0 units SC ACHS [facility] PRN Reason: Protocol Last Admin: 07/18/17 17:08 Dose: Not Given Losartan Potassium (Cozaar) 100 mg PO DAILY [facility] Last Admin: 07/18/17 09:28 Dose: 100 mg Naproxen (Anaprox Ds) 550 mg PO BID [facility] Last Admin: 07/16/17 18:28 Dose: 550 mg Ondansetron HCl (Zofran Inj) 4 mg IVP Q4H PRN PRN Reason: Nausea/Vomiting Last Admin: 07/17/17 01:51 Dose: 4 mg Oxycodone HCl (Oxycodone Immediate Release Tab) 5 mg PO Q8 PRN PRN Reason: Pain, moderate (4-7) Last Admin: 07/18/17 19:26 Dose: 5 mg Pantoprazole Sodium (Protonix Ec Tab) 40 mg PO 0600 [facility] Last Admin: 07/18/17 06:42 Dose: 40 mg - Labs Labs: 07/18/17 05:00 07/18/17 05:00 Attending/Attestation - Attestation I have personally seen and examined this patient.: Yes I have fully participated in the care of the patient.: Yes I have reviewed all pertinent clinical information, including history, physical exam and plan: Yes Notes (Text): 07/18/17 20:59 patient seen and examined independently. Translation used. vitals, labs and imaging reviewed. Some pain relief but still appears uncomfortable with minimal movement/ambulation. No more episode of coffee ground reported. GI feedback appreciated. CTAP reviewed and findings noted, abdominal ultrasound ordered for evaluation of hepatic lesions. Case will be reviewed with Dr.Peter dasilva tomorrow for next treatment options.
--- NOTE | 2017-07-18 19:56 | CP.PCM.PN ---
Subjective - Date & Time of Evaluation Date of Evaluation: 07/18/17 Time of Evaluation: 12:30 - Subjective Subjective: this patient was seen and evaluated earlier. Tolerating the diet and bowel movements normal no complaints of any abdominal pain no further episodes of vomiting Objective - Vital Signs/Intake and Output Vital Signs (last 24 hours): Temp Pulse Resp BP Pulse Ox 98 F 84 20 120/60 95 07/18/17 16:20 07/18/17 16:20 07/18/17 16:20 07/18/17 16:20 07/18/17 16:20 - Medications Medications: Current Medications Acetaminophen (Tylenol 325mg Tab) 650 mg PO Q6H PRN PRN Reason: Headache Last Admin: 07/18/17 08:15 Dose: 650 mg Atorvastatin Calcium (Lipitor) 10 mg PO HS [facility] Last Admin: 07/17/17 21:31 Dose: 10 mg Docusate Sodium (Colace) 100 mg PO BID [facility] Last Admin: 07/18/17 18:22 Dose: 100 mg Heparin Sodium (Porcine) (Heparin) 5,000 units SC Q8 [facility] PRN Reason: Protocol Last Admin: 07/16/17 22:09 Dose: 5,000 units Hydrochlorothiazide (Hydrodiuril) 25 mg PO DAILY [facility] Last Admin: 07/18/17 09:28 Dose: 25 mg Insulin Human Lispro (Humalog Low) 0 units SC ACHS [facility] PRN Reason: Protocol Last Admin: 07/18/17 17:08 Dose: Not Given Losartan Potassium (Cozaar) 100 mg PO DAILY [facility] Last Admin: 07/18/17 09:28 Dose: 100 mg Naproxen (Anaprox Ds) 550 mg PO BID [facility] Last Admin: 07/16/17 18:28 Dose: 550 mg Ondansetron HCl (Zofran Inj) 4 mg IVP Q4H PRN PRN Reason: Nausea/Vomiting Last Admin: 07/17/17 01:51 Dose: 4 mg Oxycodone HCl (Oxycodone Immediate Release Tab) 5 mg PO Q8 PRN PRN Reason: Pain, moderate (4-7) Last Admin: 07/18/17 19:26 Dose: 5 mg Pantoprazole Sodium (Protonix Ec Tab) 40 mg PO 0600 [facility] Last Admin: 07/18/17 06:42 Dose: 40 mg - Labs Labs: 07/18/17 05:00 07/18/17 05:00 - Constitutional Appears: No Acute Distress - Head Exam Head Exam: ATRAUMATIC, NORMOCEPHALIC - Eye Exam Eye Exam: EOMI, PERRL - ENT Exam ENT Exam: Mucous Membranes Moist, Normal Exam - Neck Exam Neck Exam: Full ROM, Normal Inspection. absent: Lymphadenopathy - Respiratory Exam Respiratory Exam: Clear to Ausculation Bilateral, NORMAL BREATHING PATTERN. absent: Accessory Muscle Use, Rales, Rhonchi - Cardiovascular Exam Cardiovascular Exam: REGULAR RHYTHM, +S1, +S2. absent: JVD - GI/Abdominal Exam GI & Abdominal Exam: Soft. absent: Tenderness, Mass - Extremities Exam Extremities Exam: Full ROM, Normal Inspection. absent: Calf Tenderness - Neurological Exam Neurological Exam: Alert, Awake, Oriented x3 - Psychiatric Exam Psychiatric exam: Normal Affect, Normal Mood Assessment and Plan - Assessment and Plan (Free Text) Assessment: this 67-year-old patient admitted following a fall with the compression fracture of L L1/L2 vertebrae. Patient had 1 episode of coffee-ground vomitus yesterday no further episodes since then. History of using nonsteroidal anti- inflammatory drugs Naprosyn. The CT scan done with the by mouth contrast reviewed negative except hypodense lesion in the liver other comorbidities include diabetes mellitus hypertension dyslipidemia Plan: 1 avoid NSAIDs 2. Continue Protonix 3. Follow up of the hemoglobin and hematocrit 4. We'll request ultrasound scan of the abdomen to further evaluate the hepatic lesion 5. Awaiting for further evaluation by Dr. Gal Jackson 6. Stool softeners when necessary. As patient may develop constipation in view of the pain medication or less likely Rayna syndrome which can occur in patients who have spinal injury Thank you very much for allowing us to participate in the care of the patient
[2017-07-19] MEDS: Pantoprazole 40 mg EC Tab PO SCH (06:49)
[2017-07-19 06:51] LABS: ALB/GLOB RATIO 1.1 (1.1-1.8); ALKALINE PHOSPHATASE 65 U/L (38-126); ALT/SGPT 25 U/L (7-56); AST/SGOT 23 U/L (14-36); BILIRUBIN,TOTAL 0.6 mg/dL (0.2-1.3); BLOOD UREA NITROGEN 25 mg/dL (7-21); CALCIUM 9.6 mg/dL (8.4-10.5); CARBON DIOXIDE 30 mmol/L (21-33); CHLORIDE 97 mmol/L (98-107); GFR AFRICAN-AMERICAN > 60; GLUCOSE,RANDOM 167 mg/dL (70-110); SODIUM 139 mmol/L (132-148); TOTAL PROTEIN 7.5 g/dL (5.8-8.3)
[2017-07-19 07:58] LABS: BASO # 0.04 K/mm3 (0.0-2.0); BASO % 0.5 % (0.0-3.0); EOS # 0.1 (0.0-0.7); EOS % 1.6 % (1.5-5.0); GRAN # 4.63 (1.4-6.5); GRAN % 60.7 % (50.0-68.0); HEMATOCRIT 39.8 % (36.0-48.0); LYMPH % 26.6 % (22.0-35.0); MEAN CELL VOLUME 89.6 fl (80.0-105.0); MEAN CORPUSCULAR HEMOGLOBIN 29.7 pg (25.0-35.0); MEAN CORPUSCULAR HGB CONC 33.2 g/dl (31.0-37.0); MEAN PLATELET VOLUME 10.7 fl (7.0-11.0); MONO # 0.8 (0.1-0.6); MONO % 10.6 % (1.0-6.0); RED CELL DISTRIBUTION WIDTH 12.7 % (11.5-14.5); WHITE BLOOD COUNT 7.6 10^3/ul (4.5-11.0)
[2017-07-19] MEDS: Insulin Lispro (humaLOG) LOW Coverage SC SCH ×3 (08:52→18:08)
--- NOTE | 2017-07-19 09:34 | CON ---
DATE: 07/17/2017 HISTORY OF PRESENT ILLNESS: This patient was seen and evaluated earlier today. The patient's son was at bedside. This 67-year-old patient with a past medical history of hypertension, diabetes mellitus, dyslipidemia, was brought to the hospital following a fall at home. The patient was found to have compression fracture of L1. The patient is here for pain control and possible kyphoplasty. The patient was found to have an abdominal distention and bloating, also had constipation. The last bowel movement was more than one day ago. PAST MEDICAL HISTORY: Other past medical history significant for diabetes mellitus as above, hypertension, dyslipidemia. The patient had a colonoscopy done close to a year ago by Dr. Law in [facility]. She also had an upper GI endoscopy, found to have H. pyloric gastritis which was treated. ALLERGIES: NO KNOWN DRUG ALLERGIES. SOCIAL HISTORY: Denies smoking or alcohol. REVIEW OF SYSTEMS: Positive as above. All other systems reviewed. PHYSICAL EXAMINATION: GENERAL: The patient is lying on the bed, not in acute distress. VITAL SIGNS: Temperature is 98.5, blood pressure 106/69, pulse 79, respirations 20, O2 saturation 95%. HEENT: Atraumatic, anicteric. NECK: Supple. HEART: S1 and S2 heard. LUNGS: Bilateral air entry present. ABDOMEN: Softly distended. There is no mass palpable. No tenderness. EXTREMITIES: No edema. No cyanosis. LABORATORY DATA: Hemoglobin 12.3, hematocrit 37.1, WBC 6.9, and platelets 277. Chemistry is essentially unremarkable except the sugar is elevated to 136. ASSESSMENT: This is a 67-year-old patient admitted following a fall and had a compression fracture, has been on pain medication. Has abdominal bloating, distention, and constipation, the likely cause should be included by the ileus secondary to the spine fracture. The patient's last colonoscopy was closely a year ago by Dr. Law in [facility]. History of Helicobacter pylori gastritis, treated. Other comorbidities include compression fracture of the spine, diabetes mellitus, hypertension, dyslipidemia. PLAN: We would recommend; 1. We will get a CT of the abdomen and pelvis with p.o. contrast to further evaluate the abdominal distention. 2. Continue Linzess. We will start the patient on MiraLax. 3. Liquid diet. Thank you very much for allowing us to participate in the care of the patient. We will continue to closely follow up her care and suggest further management based on the clinical course. The findings and recommendations are described to the patient's son who accompanies the patient. Judah Cheng MD
--- NOTE | 2017-07-19 14:06 | US ---
HISTORY: eval hepatic lesions COMPARISON: Unenhanced abdomen and pelvis CT examination 07/18/2017. TECHNIQUE: Sonographic evaluation of the abdomen. FINDINGS: LIVER: Measures 18.4 cm. While there is no definitive intrahepatic biliary dilatation identified. There are a few small echo-lucencies scattered at the left lobe of the liver. There is a 1.5 cm cyst identified at the medial left lobe liver with a 1.7 cm cyst identified more laterally. Near the dome there is a 1.6 cyst. All cysts appear simple and are an avascular on color per ultrasound. The right lobe liver appears unremarkable diffusely. GALLBLADDER: Prior cholecystectomy suggested. COMMON BILE DUCT: Measures 7.5 mm. No stones. No dilatation. PANCREAS: A segment of the body is identified appearing unremarkable with remainder highly obscured by overlying bowel gas. RIGHT KIDNEY: Measures 12.9cm. Normal echogenicity. No calculus, mass, or hydronephrosis. LEFT KIDNEY: Measures 13.3cm. Normal echogenicity. No calculus, mass, or hydronephrosis. SPLEEN: Spleen is grossly nonfocal and measures 10.8 cm. AORTA: No aneurysmal dilatation. IVC: Unremarkable. OTHER FINDINGS: None. IMPRESSION: Three, small simple cysts are identified in the left lobe liver and there is partial imaging of the pancreas with remainder of the examination remarkable for prior cholecystectomy.
[2017-07-19 16:48] VITALS: BP 119/68; PULSE 95; TEMP 98.8
[2017-07-19] MEDS: oxyCODONE 5 mg Immediate Release Tab PO PRN (19:46)
--- NOTE | 2017-07-20 05:51 | PN ---
DATE: SUBJECTIVE: This patient was seen and evaluated earlier today. The patient discussed with Dr. Rowley. On examination, the patient is comfortable, tolerating the diet, no further episodes of bleeding, but vomiting blood. PHYSICAL EXAMINATION VITAL SIGNS: She remains afebrile, blood pressure is 119/68, pulse is 95, temperature is 98.3, respirations 20, O2 saturation 95%. HEENT: Atraumatic and anicteric. NECK: Supple. HEART: S1 and S2 heard. LUNGS: Bilateral air entry present. ABDOMEN: Soft. There is no mass palpable. No tenderness. EXTREMITIES: No edema. No cyanosis. NEUROLOGICAL: Alert, oriented, moves all the extremities. LABORATORY DATA: Hemoglobin is 13.2, hematocrit 39.8, WBC 7.2, platelets 306. LFTs essentially unremarkable except blood glucose 167. The ultrasound scan of the abdomen showed hepatic cyst. IMPRESSION: This 67-year-old patient admitted following a fall and had a compression fracture of the L1-L2 vertebrae. The patient had an episode of vomiting coffee-ground material. No further episode. The patient was on Naprosyn before. RECOMMENDATIONS: We would recommend: 1. To avoid nonsteroidal hemodynamically remained stable, requires no transfusion. The patient declined any further evaluation for the compression fracture, did not want any kyphoplasty. Would recommend the patient to be on empirically PPI for a short course. 2. Avoid the NSAIDs. 3. The patient is advised to go to the ER with any further acute worsening of the abdominal pain or any bleeding per rectum. 4. We will continue to closely follow up her care. The patient is advised to continue the PPI and avoid the NSAIDs. The patient would need elective GI followup. The patient was seen by Dr. Law in [facility] where she had a colonoscopy. The patient was advised to follow up with her primary doctor and also followup with her furniture dipper regarding further evaluation including an EGD. Thank you very much for allowing me to participate in the care of the patient. Judah Cheng MD
--- NOTE | 2017-07-20 08:34 | CP.PCM.DIS ---
Provider - Provider Date of Admission: 07/18/17 20:57 Attending physician: Aj Rowley MD Time Spent in preparation of Discharge (in minutes): 45 Hospital Course - Lab Results Lab Results: Most Recent Lab Values WBC 7.6 10^3/ul (4.5-11.0) 07/19/17 07:30 RBC 4.44 10^6/uL (3.5-6.1) 07/19/17 07:30 Hgb 13.2 g/dL (12.0-16.0) 07/19/17 07:30 Hct 39.8 % (36.0-48.0) 07/19/17 07:30 MCV 89.6 fl (80.0-105.0) 07/19/17 07:30 MCH 29.7 pg (25.0-35.0) 07/19/17 07:30 MCHC 33.2 g/dl (31.0-37.0) 07/19/17 07:30 RDW 12.7 % (11.5-14.5) 07/19/17 07:30 Plt Count 306 10^3/uL (120.0-450.0) 07/19/17 07:30 MPV 10.7 fl (7.0-11.0) 07/19/17 07:30 Gran % 60.7 % (50.0-68.0) 07/19/17 07:30 Lymph % (Auto) 26.6 % (22.0-35.0) 07/19/17 07:30 Ralls % (Auto) 10.6 % (1.0-6.0) H 07/19/17 07:30 Eos % (Auto) 1.6 % (1.5-5.0) 07/19/17 07:30 Baso % (Auto) 0.5 % (0.0-3.0) 07/19/17 07:30 Gran # 4.63 (1.4-6.5) 07/19/17 07:30 Lymph # 2.0 (1.2-3.4) 07/19/17 07:30 Ralls # 0.8 (0.1-0.6) H 07/19/17 07:30 Eos # 0.1 (0.0-0.7) 07/19/17 07:30 Baso # 0.04 K/mm3 (0.0-2.0) 07/19/17 07:30 Sodium 139 mmol/L (132-148) 07/19/17 05:15 Potassium 4.0 mmol/L (3.6-5.0) 07/19/17 05:15 Chloride 97 mmol/L (98-107) L 07/19/17 05:15 Carbon Dioxide 30 mmol/L (21-33) 07/19/17 05:15 Anion Gap 17 (10-20) 07/19/17 05:15 BUN 25 mg/dL (7-21) H 07/19/17 05:15 Creatinine 0.9 mg/dl (0.7-1.2) 07/19/17 05:15 Est GFR ( Amer) > 60 07/19/17 05:15 Est GFR (Non-Af Amer) > 60 07/19/17 05:15 POC Glucose (mg/dL) 193 mg/dL (65-110) H 07/19/17 11:13 Random Glucose 167 mg/dL (70-110) H 07/19/17 05:15 Calcium 9.6 mg/dL (8.4-10.5) 07/19/17 05:15 Total Bilirubin 0.6 mg/dL (0.2-1.3) 07/19/17 05:15 AST 23 U/L (14-36) 07/19/17 05:15 ALT 25 U/L (7-56) 07/19/17 05:15 Alkaline Phosphatase 65 U/L (38-126) 07/19/17 05:15 Total Protein 7.5 g/dL (5.8-8.3) 07/19/17 05:15 Albumin 4.0 g/dL (3.0-4.8) 07/19/17 05:15 Globulin 3.6 gm/dL 07/19/17 05:15 Albumin/Globulin Ratio 1.1 (1.1-1.8) 07/19/17 05:15 Stool Occult Blood Positive (NEGATIVE) H 07/19/17 15:44 Discharge Exam - Head Exam Head Exam: ATRAUMATIC, NORMOCEPHALIC Discharge Plan - Discharge Medications Prescriptions: oxyCODONE/Acetaminophen [Percocet 5/325 mg Tab] 1 ea PO Q6 PRN #15 tab PRN Reason: Pain, Severe (8-10) - Follow Up Plan Condition: STABLE Disposition: HOME/ ROUTINE Instructions: Fall Prevention (DC) Additional Instructions: PT instructed to follow up with Orthopedic of choice outpatient and to take home medications as ordered.
== END 2017-07-19 20:58 | disposition home or self-care (01) | DRG 552 ==
LOC: ED 11:32 → ERH 14:33 → 3RNO 17:55 → OBSVTOIN 07-18 20:57
PROVIDERS: ADMIT Internal Medicine; ATTEND Hospitalist
DX: S32.019A Unspecified fracture of first lumbar vertebra, initial encounter for closed fracture (principal); M41.9 Scoliosis, unspecified; W07.XXXA Fall from chair, initial encounter; E11.9 Type 2 diabetes mellitus without complications; I10 Essential (primary) hypertension; M51.36 Other intervertebral disc degeneration, lumbar region; E78.5 Hyperlipidemia, unspecified; K59.00 Constipation, unspecified; R14.0 Abdominal distension (gaseous); Z86.19 Personal history of other infectious and parasitic diseases; Z90.49 Acquired absence of other specified parts of digestive tract; Y92.009 Unspecified place in unspecified non-institutional (private) residence as the place of occurrence of the external cause; Y99.9 Unspecified external cause status